=== PATIENT | female | born 1990 | race African-American/Black ===

== ENCOUNTER 2022-09-14 20:35 | Emergency (ER) | payer SELFPAY ==
[2022-09-14] MEDS ORDERED: Lidocaine Viscous Sol 2% 15 ml UD Cup ONE (22:18)
== END 2022-09-14 22:35 | disposition home or self-care (01) ==
LOC: EDBD 20:35 → ERS 20:35
DX: K02.9 Dental caries, unspecified (principal); F17.290 Nicotine dependence, other tobacco product, uncomplicated
CPT/HCPCS: 99282